=== PATIENT | male | born 1985 | race Caucasian/White ===

== ENCOUNTER 2017-02-21 18:49 | Emergency (ER) | payer SELFPAY ==
[2017-02-21] MEDS ORDERED: Metoclopramide IV* 5 MG/ML 2 ML VIAL IV ONE (19:58)
[2017-02-21] MEDS ORDERED: Pantoprazole IV* 40 MG IV ONE (19:58)
--- NOTE | 2017-02-21 20:18 | RAD ---
INDICATION: Vomiting COMPARISON: None TECHNIQUE: PA and lateral views of the chest were obtained. FINDINGS: The heart and mediastinum are normal in size and contour. The lungs are grossly clear. There is no evidence of large pleural effusion. Visualized bones are normal for the patient's age. There is no radiographic evidence of free air beneath the diaphragm IMPRESSION: No radiographic evidence of acute cardiopulmonary disease.
[2017-02-21] MEDS ORDERED: Sodium Polystyrene ORAL.SOL* 15 GM/60 ML BTL PO ONE (20:28)
[2017-02-21] MEDS: NS 0.9% 1000 ML* 2,000 ML IV ONE (20:47)
[2017-02-21 20:48] LABS: Hematocrit 44 % (42-52); Hemoglobin 14.8 g/dl (14.0-18.0); Mean Corpuscular HGB Conc 34 g/dl (31-36); Mean Corpuscular Hemoglobin 33 pg (27-31); Mean Corpuscular Volume 96 fL (80-94); Mean Platelet Volume 8 um3 (7.4-10.4); Red Blood Count 4.52 10^6/ul (4.0-5.4); Red Cell Distribution Width 14 % (10.5-15); White Blood Count 10.7 10^3/ul (3.5-10.8)
[2017-02-21 20:57] LABS: Urine Bilirubin Negative (Negative); Urine Glucose Negative (Negative); Urine Nitrite Negative (Negative)
[2017-02-21 21:01] LABS: Albumin 4.5 g/dL (3.2-5.2); BUN/Creatinine Ratio 14.9 (8-20); C Reactive Protein 6.13 mg/L (< 5.00); Calcium 9.5 mg/dL (8.6-10.3); EGFR African American 131.6 (>60); EGFR Non-African American 102.3 (>60); Globulin 2.6 g/dL (2-4); Magnesium 1.8 mg/dL (1.9-2.7); Potassium 3.9 mmol/L (3.5-5.0); Total Bilirubin 0.3 mg/dL (0.2-1.0); Total Protein 7.1 g/dL (6.4-8.9)
--- NOTE | 2017-02-21 21:03 | ED ---
Valerio Cruz Angela, scribed for Ezio Chen MD on 02/21/17 at 1952 . Abdominal Pain/Male - HPI Summary HPI Summary: This pt is a 31 y/o male presenting to [facility] c/o abd pain, nausea, vomiting and diarrhea x1.5 days. Pt describes his emesis as brown in color. Pt has chest and esophagus area discomfort secondary to vomiting. He states his throat is sore and has pain in throat when breathing. Pt describes diarrhea as brown and normal color. He states he has lost weight. Pt denies fever. Pt notes drinking alcohol (only 1 glass of wine) in the past few days but has been cutting back due to esophagitis. He is a current smoker. He states that he has fish oil allergies. Pt believes he might have food poisoning from eating [place] food 2 days ago. Pt denies having these symptoms before. PMHx: esophagitis (due to drinking alcohol). - History of Current Complaint Chief Complaint: EDAbdPain Stated Complaint: ABD PAIN, VOMITING Time Seen by Provider: 02/21/17 19:38 Hx Obtained From: Patient Onset/Duration: Lasting Days Timing: Lasting Days Pain Intensity: 4 Location: Diffuse Radiates: No Associated Signs And Symptoms: Positive: Nausea, Vomiting, Diarrhea, Other - weight loss. Negative: Fever - Allergies/Home Medications Allergies/Adverse Reactions: Allergies Allergy/AdvReac Type Severity Reaction Status Date / Time Fish Allergy Allergy Severe Anaphylatic Verified 02/21/17 18:55 Shock Fish Oil Allergy Severe Anaphylatic Verified 02/21/17 18:55 Shock Shellfish Allergy Allergy Severe Anaphylatic Verified 02/21/17 18:55 Shock PMH/Surg Hx/FS Hx/Imm Hx Endocrine/Hematology History: Denies: Hx Diabetes Cardiovascular History: Denies: Hx Hypertension EENT History: Reports: Other - esophagitis - Surgical History Surgery Procedure, Year, and Place: biopsy of esophagus Infectious Disease History: No Infectious Disease History: Denies: Traveled Outside the [place] in Last 30 Days - Family History Known Family History: Negative: Diabetes - Social History Occupation: Employed Full-time - cook Alcohol Use: Occasionally Hx Substance Use: No Substance Use Type: Reports: Marijuana Substance Use Comment - Amount & Last Used: week ago Hx Tobacco Use: Yes Smoking Status (MU): Current Every Day Smoker Review of Systems Negative: Fever, Chills Eyes: Negative Positive: Sore Throat - secondary to vomiting Cardiovascular: Negative Negative: Shortness Of Breath, Cough Positive: Abdominal Pain, Vomiting, Diarrhea, Nausea Neurological: Negative All Other Systems Reviewed And Are Negative: Yes Physical Exam Triage Information Reviewed: Yes Vital Signs On Initial Exam: Initial Vitals Temp Pulse Resp BP Pulse Ox 97.5 F 74 16 117/69 98 02/21/17 18:51 02/21/17 18:51 02/21/17 18:51 02/21/17 18:51 02/21/17 18:51 Vital Signs Reviewed: Yes Appearance: Positive: Well-Appearing, No Pain Distress Skin: Positive: Warm, Skin Color Reflects Adequate Perfusion Head/Face: Positive: Normal Head/Face Inspection Eyes: Positive: EOMI ENT: Positive: Normal ENT inspection, Pharyngeal erythema, TMs normal, Other - normal voice.. Negative: Trismus, Muffled/hoarse voice Neck: Positive: Nontender Respiratory/Lung Sounds: Positive: Clear to Auscultation, Breath Sounds Present Cardiovascular: Positive: RRR. Negative: Murmur Abdomen Description: Positive: Nontender Musculoskeletal: Positive: Strength/ROM Intact Neurological: Positive: Sensory/Motor Intact, Alert, Oriented to Person Place, Time, CN Intact II-III Psychiatric: Positive: Normal - Picher Coma Scale Best Eye Response: 4 - Spontaneous Best Motor Response: 6 - Obeys Commands Best Verbal Response: 5 - Oriented Coma Scale Total: 15 Diagnostics - Vital Signs Vital Signs Temp Pulse Resp BP Pulse Ox 02/21/17 19:32 72 105/66 99 02/21/17 18:51 97.5 F 74 16 117/69 98 - Laboratory Result Diagrams: 02/21/17 20:30 02/21/17 20:30 Lab Statement: Any lab studies that have been ordered have been reviewed, and results considered in the medical decision making process. - Radiology Chest XR Xray Interpretation: No Acute Changes - IMPRESSION: No radiographic evidence of acute cardiopulmonary disease. ED physician has reviewed this radiology report and agrees. Radiology Interpretation Completed By: Radiologist Abdominal Pain Fem Course/Dx - Course Assessment/Plan: Pt is a 31 y/o male, with PMHx of esophagitis, presents with abd pain, nausea, vomiting and diarrhea x1.5 days. Bloodwork and chest XR were obtained. - Diagnoses Provider Diagnoses: Abdominal pain Discharge - Discharge Plan Condition: Good Disposition: OTHER Referrals: No Primary Care Phys,NOPCP [Primary Care Provider] - The documentation as recorded by the Valerio rudd Angela accurately reflects the service I personally performed and the decisions made by me, Ezio Chen MD.
--- NOTE | 2017-02-21 21:44 | RAD ---
CLINICAL HISTORY: Epigastric pain COMPARISON: None TECHNIQUE: Noncontrast CT examination of the abdomen and pelvis from the lung bases through the initial tuberosities. FINDINGS: VISUALIZED LUNG BASES: The visualized lung bases are grossly clear. There is no pleural effusion. ABDOMEN AND PELVIS: Evaluation of the solid organs and vasculature is limited without intravenous contrast. The liver, spleen, pancreas and adrenal glands are grossly normal in appearance. The gallbladder is normal. Bilaterally there are multiple renal calculi measuring up to 3 mm on the left and 3 mm on the right. There is no definite hydronephrosis in either kidney. No renal calculi are identified in either ureter or in the urinary bladder. Evaluation of the gastrointestinal tract is limited in the absence of oral contrast. The small and large bowel are not distended. The appendix is probably visualized in the right lower quadrant with a small amount of gas in the lumen measuring 6 mm in diameter (axial image 51 and coronal image 34) There is no gross retroperitoneal or mesenteric lymphadenopathy. The pelvic viscera is normal in appearance. The abdominal aorta and iliac arteries are normal in course and diameter. Degenerative changes of the lower thoracic spine include loss of intervertebral disc height and mild endplate sclerosis at T11/T12.There are no sinister bone lesions. IMPRESSION: 1. Bilateral renal calculi without signs of urinary obstruction or acute inflammatory change. 2. No definite acute abnormality of the gastrointestinal tract, but evaluation is highly limited in the absence of oral and IV contrast.
[2017-02-21 22:54] VITALS: BP 116/76
--- NOTE | 2017-02-22 00:47 | ED ---
Diego Cruz Rebecca, scribed for Chandana Prakash on 02/21/17 at 2225 . Progress - Progress Note Progress Note: Pt was signed out from Dr. Chen, pending disposition, awaiting CT Abd/Pel. - Results/Orders Results/Orders: CT Abd/Pel, as read by radiologist reveals: 1. Bilateral renal calculi without signs of urinary obstruction or acute inflammatory change. 2. No definite acute abnormality of the gastrointestinal tract, but evaluation is highly limited in the absence of oral and IV contrast. ED physician reviewed radiology report and agrees. Re-Evaluation - Re-Evaluation First Eval Re-Evaluation Time: 22:24 Comment: Discussed CT results and plan to D/C with the pt. Course/Dx - Course Course Of Treatment: Pt was signed out by Dr. Chen, pending disposition, awaiting CT Ad/Pel. CT Abd/Pel reveals no acute findings. Pt's condition is stable and he will be D/C to home with Dx of abdominal pain with Rx for Protonix. He understands and agrees. - Diagnoses Provider Diagnoses: Pain, abdominal, nonspecific The documentation as recorded by the Diego rudd Rebecca accurately reflects the service I personally performed and the decisions made by , Chandana Prakash.
== END 2017-02-21 22:54 ==
LOC: ED 18:49 → MERGE 18:49 → ED 22:54
DX: R10.9 Unspecified abdominal pain (principal)
CPT/HCPCS: 36415; 71020; 74176; 80053; 81003; 83690; 83735; 85025; 86140; 96374; 99283; J2765

== ENCOUNTER 2018-01-09 11:35 | Emergency (ER) | payer SELFPAY ==
[2018-01-09 12:31] VITALS: BP 108/60
[2018-01-09] MEDS ORDERED: Tetan/Diph/Pertus SYR(Tdap)* 0.5 ML SYR(BOOSTRIX) use SYR IM ONE (12:47)
--- NOTE | 2018-01-09 12:48 | UC ---
Laceration HPI - HPI Summary HPI Summary: left third finger cut this morning while cutting onions at work---well approximated no bleeding, n/m/c intact - History Of Current Complaint Chief Complaint: UCLaceration Stated Complaint: FINGER LACERATION Time Seen by Provider: 01/09/18 12:42 Hx Obtained From: Patient Laceration Location: Finger - left third finger distally Mechanism Of Injury: Sharp Trauma Onset/Duration: Sudden Onset Pain Intensity: 4 Pain Scale Used: 0-10 Numeric Related History: Occupational Injury - Allergies/Home Medications Allergies/Adverse Reactions: Allergies Allergy/AdvReac Type Severity Reaction Status Date / Time fish oil Allergy Severe Anaphylatic Verified 01/09/18 12:33 Shock shellfish derived Allergy Intermediate Anaphylatic Verified 01/09/18 12:33 Shock Fish Containing Products Allergy Anaphylatic Verified 01/09/18 12:33 Shock Home Medications: Home Medications NK [No Home Medications Reported] 01/09/18 [History Confirmed 01/09/18] PMH/Surg Hx/FS Hx/Imm Hx Previously Healthy: Yes - Surgical History Surgical History: None Surgery Procedure, Year, and Place: biopsy of esophagus - Family History Known Family History: Negative: Diabetes - Social History Occupation: Employed Full-time Lives: With Family Alcohol Use: Occasionally Substance Use Type: Marijuana Substance Use Comment - Amount & Last Used: monthly Smoking Status (MU): Former Smoker Have You Smoked in the Last Year: No - Immunization History Most Recent Tetanus Shot: unsure Vaccination Up to Date: No Review of Systems Constitutional: Negative Skin: Other - 5 mm laceration tip of third left finger Eyes: Negative ENT: Negative Respiratory: Negative Cardiovascular: Negative Gastrointestinal: Negative Genitourinary: Negative Motor: Negative Neurovascular: Negative Musculoskeletal: Negative Neurological: Negative Psychological: Negative Is Patient Immunocompromised?: No All Other Systems Reviewed And Are Negative: Yes Physical Exam Triage Information Reviewed: Yes Vital Signs: Initial Vital Signs Temp 97.9 F 01/09/18 12:26 Pulse 73 01/09/18 12:26 Resp 18 01/09/18 12:26 BP 108/60 01/09/18 12:26 Pulse Ox 100 01/09/18 12:26 Eye Exam: Normal ENT Exam: Normal Dental Exam: Normal Neck exam: Normal Neck: Positive: 1 Respiratory Exam: Normal Cardiovascular Exam: Normal Abdominal Exam: Normal Musculoskeletal Exam: Normal Neurological Exam: Normal Psychological Exam: Normal Skin Exam: Normal Laceration Repair - Laceration Repair 1 Description: Linear Laceration Size After Repair: Length (cm) - 0.5 Modified For Repair: No Cleansing Completed Via Routine Prep: Yes Irrigation With Pressure Irrigation Device: Yes Closure Material: Skin Adhesive, SteriStrips Laceration Course/Dx - Course/Dx Course Of Treatment: up date bev, skin glue and steri repair for laceration - Differential Dx - Laceration/Wound Provider Diagnoses: laceration with glue repair left 3rd finger Discharge - Sign-Out/Discharge Documenting (check all that apply): Patient Departure All imaging exams completed and their final reports reviewed: No Studies - Discharge Plan Condition: Stable Disposition: HOME Patient Education Materials: Skin Adhesive Care (ED), Steristrips (ED) Forms: *Work Release Referrals: [facility] [Outside] - If Needed No Primary Care Phys,NOPCP [Primary Care Provider] - - Billing Disposition and Condition Condition: STABLE Disposition: Home - Attestation Statements Provider Attestation: I was available for consult. This patient was seen by the PAVAN. The patient was not presented to, seen by, or examined by me. -Fito
[2018-01-09] MEDS ORDERED: Benzoin Compound STICK TOPICAL ONE (13:13)
[2018-01-09] MEDS ORDERED: Benzoin Compound STICK ONE (13:14)
== END 2018-01-09 13:30 | disposition home or self-care (01) ==
LOC: UCEAST 11:35
DX: S61.213A Laceration without foreign body of left middle finger without damage to nail, initial encounter (principal); W26.0XXA Contact with knife, initial encounter; Y92.9 Unspecified place or not applicable
CPT/HCPCS: 12001; 90471; 90715; 99201; G0463

== ENCOUNTER 2018-08-29 23:26 | Emergency (ER) | payer OTHER ==
--- NOTE | 2018-08-30 01:55 | ED ---
Laceration/Wound HPI - HPI Summary HPI Summary: 32-year-old male presents with left little finger laceration. He states he was doing dishes and cut it. Denies any foreign body in wound. Tetanus up-to- date. No active bleeding. Has full range of motion. Has no medical conditions. - History of Current Complaint Stated Complaint: LEFT HAND LAC PER PT Time Seen by Provider: 08/30/18 01:34 Pain Intensity: 6 - Allergy/Home Medications Allergies/Adverse Reactions: Allergies Allergy/AdvReac Type Severity Reaction Status Date / Time fish oil Allergy Severe Anaphylatic Verified 08/29/18 23:35 Shock shellfish derived Allergy Intermediate Anaphylatic Verified 08/29/18 23:35 Shock Fish Containing Products Allergy Anaphylatic Verified 08/29/18 23:35 Shock PMH/Surg Hx/FS Hx/Imm Hx Endocrine/Hematology History: Denies: Hx Diabetes, Hx Thyroid Disease Cardiovascular History: Denies: Hx Hypertension Respiratory History: Denies: Hx Asthma, Hx Chronic Obstructive Pulmonary Disease (COPD) GI History: Denies: Hx Ulcer - Surgical History Surgery Procedure, Year, and Place: biopsy of esophagus Infectious Disease History: No Infectious Disease History: Denies: Hx Hepatitis, Hx Human Immunodeficiency Virus (HIV), Traveled Outside the [place] in Last 30 Days - Family History Known Family History: Negative: Diabetes - Social History Alcohol Use: None Hx Substance Use: No Substance Use Type: Reports: None Substance Use Comment - Amount & Last Used: monthly Hx Tobacco Use: Yes Smoking Status (MU): Light Every Day Tobacco Smoker Have You Smoked in the Last Year: No Review of Systems Negative: Fever Negative: Chest Pain Negative: Shortness Of Breath Positive: Other - left pinky finger laceration All Other Systems Reviewed And Are Negative: Yes Physical Exam Triage Information Reviewed: Yes Vital Signs On Initial Exam: Initial Vitals Temp Pulse Resp BP Pulse Ox 99.2 F 96 16 133/77 98 08/29/18 23:33 08/29/18 23:33 08/29/18 23:33 08/29/18 23:33 08/29/18 23:33 Vital Signs Reviewed: Yes Appearance: Positive: Well-Appearing Skin: Positive: Warm, Dry, Other - 1cm superficial of left pinky finger Head/Face: Positive: Normal Head/Face Inspection Eyes: Positive: Normal, Conjunctiva Clear ENT: Positive: Pharynx normal Respiratory/Lung Sounds: Positive: Clear to Auscultation, Breath Sounds Present Cardiovascular: Positive: Normal, RRR Musculoskeletal: Positive: Normal Neurological: Positive: Normal Psychiatric: Positive: Normal Procedures - Laceration/Wound Repair 1 Location: Other - left little finger Length, Depth and Shape: 1cm superficial Irrigated w/ Saline (ccs): 100 Closure: Skin Adhesive, SteriStrips Diagnostics - Vital Signs Vital Signs Temp Pulse Resp BP Pulse Ox 08/29/18 23:33 99.2 F 96 16 133/77 98 - Laboratory Lab Statement: Any lab studies that have been ordered have been reviewed, and results considered in the medical decision making process. Laceration Repair Course/Dx - Course Course Of Treatment: 32-year-old male presents with left little finger laceration. He states he was doing dishes and cut it. Denies any foreign body in wound. Tetanus up-to-date. No active bleeding. Has full range of motion. Has no medical conditions. On exam 1 cm superficial laceration on the proximal phalanx of left pinky finger. Clean area and place glue. Told to keep the area clean and dry. Patient understands agrees with plan. - Differential Dx Differental Diagnoses: Abrasion, Avulsion, Laceration - Clinical Impression Provider Diagnoses: Laceration of left little finger Discharge - Sign-Out/Discharge Documenting (check all that apply): Patient Departure Patient Received Moderate/Deep Sedation with Procedure: No - Discharge Plan Condition: Good Disposition: HOME Patient Education Materials: Skin Adhesive Care (ED) Forms: *Work Release Referrals: No Primary Care Phys,NOPCP [Primary Care Provider] - Additional Instructions: Take Tylenol or ibuprofen for pain as needed every 6 hours Keep dry for 24 hours Glue will fall off on own Avoid scrubbing area Return to ED if develop any signs of infection or any new or worsening symptoms - Billing Disposition and Condition Condition: GOOD Disposition: Home
[2018-08-30 02:16] VITALS: BP 126/79
== END 2018-08-30 02:15 | disposition home or self-care (01) ==
LOC: ED 23:26
DX: S61.217A Laceration without foreign body of left little finger without damage to nail, initial encounter (principal); W26.9XXA Contact with unspecified sharp object(s), initial encounter; Y93.G1 Activity, food preparation and clean up; Y92.010 Kitchen of single-family (private) house as the place of occurrence of the external cause; Y99.8 Other external cause status; F17.210 Nicotine dependence, cigarettes, uncomplicated
CPT/HCPCS: 12001; 99281

== ENCOUNTER 2019-03-10 12:37 | Emergency (ER) | payer SELFPAY ==
[2019-03-10 13:42] VITALS: BP 100/57
--- NOTE | 2019-03-10 13:53 | UC ---
Hand/Wrist HPI - HPI Summary HPI Summary: Patient is a 33-year-old male presenting with right wrist pain this morning. States he rolled over in bed and heard his wrist pop which woke him up. States pain radiates into hand which also has become swollen. He notes decreased carpenter maintenance strength. Notes some tingling. Denies numbness. Denies decreased range of motion. 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 - History Of Current Complaint Chief Complaint: UCUpperExtremity Stated Complaint: HAND / WRIST INJURY Hx Obtained From: Patient Onset/Duration: Sudden Onset Severity Currently: Mild Pain Intensity: 4 Pain Scale Used: 0-10 Numeric - Allergies/Home Medications Allergies/Adverse Reactions: Allergies Allergy/AdvReac Type Severity Reaction Status Date / Time fish oil Allergy Severe Anaphylatic Verified 03/10/19 13:37 Shock shellfish derived Allergy Intermediate Anaphylatic Verified 03/10/19 13:37 Shock Fish Containing Products Allergy Anaphylatic Verified 03/10/19 13:37 Shock PMH/Surg Hx/FS Hx/Imm Hx Previously Healthy: Yes - Surgical History Surgical History: Yes Surgery Procedure, Year, and Place: biopsy of esophagus - Family History Known Family History: Negative: Diabetes - Social History Alcohol Use: Rare Substance Use Type: None Substance Use Comment - Amount & Last Used: monthly Smoking Status (MU): Light Every Day Tobacco Smoker Amount Used/How Often: 3 cig a week Have You Smoked in the Last Year: No - Immunization History Most Recent Tetanus Shot: unsure Vaccination Up to Date: No Review of Systems All Other Systems Reviewed And Are Negative: Yes Constitutional: Positive: Negative Respiratory: Positive: Negative Cardiovascular: Positive: Negative Musculoskeletal: Positive: Arthralgia, Edema. Negative: Decreased ROM, Myalgia Neurological: Positive: Weakness, Paresthesia. Negative: Numbness Physical Exam Triage Information Reviewed: Yes Appearance: Well-Appearing, No Pain Distress, Well-Nourished Vital Signs: Initial Vital Signs Temp 97.7 F 03/10/19 13:37 Pulse 73 03/10/19 13:37 Resp 16 03/10/19 13:37 BP 100/57 03/10/19 13:37 Pulse Ox 99 03/10/19 13:37 Vital Signs Reviewed: Yes Eyes: Positive: Conjunctiva Clear ENT: Positive: Hearing grossly normal Neck: Positive: Supple Respiratory: Positive: No respiratory distress Cardiovascular: Positive: Pulses Normal - Strong radial pulses bilaterally, Brisk Capillary Refill Musculoskeletal Exam: Other Musculoskeletal: Positive: Strength Limited @ - Right hand carpenter maintenance, ROM Limited @ - Right wrist flexion, Edema @ - Mild edema of right hand and fingers compared to left Neurological Exam: Other - Sensation grossly intact Neurological: Positive: Alert Psychological: Positive: Age Appropriate Behavior Skin Exam: Normal, Other - No erythema or ecchymosis Diagnostics - Radiology R wrist xray Radiology Interpretation Completed By: Radiologist Summary of Radiographic Findings: IMPRESSION: NO ACUTE OSSEOUS INJURY. IF SYMPTOMS PERSIST, RECOMMEND REPEAT IMAGING. Hand/Wrist Course/Dx - Course Course Of Treatment: Chest negative x-rays with patient. Instructed him to continue with symptomatic treatment including use of cock-up splint. Instructed to follow-up with orthopedics if pain persists. Patient voiced understanding and agreed with the treatment plan. - Differential Dx/Diagnosis Provider Diagnosis: Right wrist pain Discharge ED - Sign-Out/Discharge Documenting (check all that apply): Patient Departure All imaging exams completed and their final reports reviewed: Yes - Discharge Plan Condition: Stable Disposition: HOME Patient Education Materials: Wrist Injury (ED) Forms: *Work Release Referrals: [facility] [Outside] - If Needed Millie Carranza MD [Medical Doctor] - If Needed Additional Instructions: As discussed, the xrays of the wrist did not show any fractures. Rest and use ice, elevation, and the wrist splint to help relieve pain. You may also use over the counter pain medications as directed for relief of pain. If pain does not resolve, follow up with your PCP or orthopedics as listed below. Return or go to the emergency room if pain worsens, the hand becomes cold and numb, or you are unable to move the wrist or hand. - Billing Disposition and Condition Condition: STABLE Disposition: Home
== END 2019-03-10 14:45 | disposition home or self-care (01) ==
LOC: UCEAST 12:37
DX: M25.531 Pain in right wrist (principal); F17.210 Nicotine dependence, cigarettes, uncomplicated; Z91.013 Allergy to seafood
CPT/HCPCS: 99212; G0463

== ENCOUNTER 2019-07-19 14:41 | Emergency (ER) | payer SELFPAY ==
[2019-07-19 15:24] VITALS: BP 115/62
[2019-07-19] MEDS ORDERED: Lidocaine 2.5%/Prilocain 2.5%* 5 GM TUBE TOPICAL ONE (15:53)
--- NOTE | 2019-07-19 16:18 | UC ---
Skin Complaint HPI - HPI Summary HPI Summary: 33 year old male with no PMH no medications, works as a chef french, presents with swollen, red, painful right third finger. States cut it at work or got a sliver ~ 1 week ago. Since then has been move painful. ABle to move finger, feels stiff. no sensation. no wrist pain, MCP pain. - History of Current Complaint Chief Complaint: UCUpperExtremity Time Seen by Provider: 07/19/19 15:45 Stated Complaint: R FINGER INFECTION Hx Obtained From: Patient Onset/Duration: Sudden Onset, Lasting Days - since , Still Present, Worse Since - daily Timing: Constant Onset Severity: Moderate Current Severity: Moderate Pain Intensity: 6 Pain Scale Used: 0-10 Numeric Location: Discrete - left middle finger DIP Character: Pain, Redness, Raised, Painful Aggravating Factor(s): Touch, Other - movement Associated Signs & Symptoms: Positive: Red Streaks, Joint Swelling. Negative: Nausea Related History: Trauma - Allergy/Home Medications Allergies/Adverse Reactions: Allergies Allergy/AdvReac Type Severity Reaction Status Date / Time fish oil Allergy Severe Anaphylatic Verified 07/19/19 15:24 Shock shellfish derived Allergy Intermediate Anaphylatic Verified 07/19/19 15:24 Shock Fish Containing Products Allergy Anaphylatic Verified 07/19/19 15:24 Shock Home Medications: Home Medications Sulfamethox/Trimethoprim DS* [Bactrim DS 800/160 TAB*] 1 tab PO BID #14 tab 07/08 [Rx] PMH/Surg Hx/FS Hx/Imm Hx Previously Healthy: Yes - Surgical History Surgical History: Yes Surgery Procedure, Year, and Place: biopsy of esophagus - Family History Known Family History: Positive: Non-Contributory Negative: Diabetes - Social History Alcohol Use: Rare Substance Use Type: None Substance Use Comment - Amount & Last Used: monthly Smoking Status (MU): Light Every Day Tobacco Smoker Amount Used/How Often: 3 cig a week Have You Smoked in the Last Year: No - Immunization History Most Recent Tetanus Shot: unsure Vaccination Up to Date: No Review of Systems All Other Systems Reviewed And Are Negative: Yes Constitutional: Positive: Negative. Negative: Fever, Chills, Fatigue Skin: Positive: Other ENT: Positive: Negative Musculoskeletal: Positive: Arthralgia, Edema, Myalgia Psychological: Positive: Negative Is Patient Immunocompromised?: No Physical Exam Triage Information Reviewed: Yes Appearance: Well-Appearing, No Pain Distress, Well-Nourished Vital Signs: Initial Vital Signs Temp 100.8 F 07/19/19 15:18 Pulse 76 07/19/19 15:18 Resp 16 07/19/19 15:18 BP 115/62 07/19/19 15:18 Pulse Ox 97 07/19/19 15:18 Vital Signs Reviewed: Yes Eyes: Positive: Conjunctiva Clear Musculoskeletal: Positive: Strength Intact - all DIP, PIP MCP on r hand, ROM Intact - all DIP, PIP MCP on r hand, Edema @ - DIP r 3rd finger Neurological: Positive: Alert, Muscle Tone Normal Psychological Exam: Normal Psychological: Positive: Normal Response To Family Skin: Positive: Other - moderate erythema around right middle DIP, decreased ROM due to swelling/ pain at DIP. Pustule seen on dorsal aspect of finger. + mild warmth. no drainage seen. Procedures - Incision and Drainage Right Finger Site: Uncomplicated I&D to abscess right 3rd dip, volar aspect, after anes with Anesthesia: Topical - EMLA Instrument(s): Scalpel - small puncture wound completed, no packing necessary Packing: Other - none Course/Dx - Course Course Of Treatment: I&D of right middle finger - Warm water soaks 3 times a day for next 2 days to help with drainage - Antibiotics as directed - Return if symptoms worse, increased pain, fever, chills, or decreased movement of finger - Elevate hand as much as possible to decrease swelling - Keep covered. - Diagnoses Provider Diagnosis: Abscess of finger of right hand, Cellulitis Discharge ED - Sign-Out/Discharge Documenting (check all that apply): Patient Departure All imaging exams completed and their final reports reviewed: No Studies - Discharge Plan Condition: Good Disposition: HOME Prescriptions: Sulfamethox/Trimethoprim DS* [Bactrim DS 800/160 TAB*] 1 tab PO BID #14 tab Patient Education Materials: Cellulitis (ED), Abscess Incision and Drainage (DC ) Forms: *Work Release Referrals: No Primary Care Phys,NOPCP [Primary Care Provider] - [facility] [Outside] Additional Instructions: - Warm water soaks 3 times a day for next 2 days to help with drainage - Antibiotics as directed - Return if symptoms worse, increased pain, fever, chills, or decreased movement of finger - Elevate hand as much as possible to decrease swelling - Keep covered. - Billing Disposition and Condition Condition: GOOD Disposition: Home
[2019-07-19] MEDS ORDERED: Sulfamethox/Trimethoprim DS 800/160* TAB PO ONE (16:41)
== END 2019-07-19 17:12 | disposition home or self-care (01) ==
LOC: UCEAST 14:41
DX: L02.511 Cutaneous abscess of right hand (principal); L03.011 Cellulitis of right finger; Z91.013 Allergy to seafood; Z72.0 Tobacco use
CPT/HCPCS: 10060; 87070; 87205; 99212; A9270-GY; G0463

== ENCOUNTER 2019-07-23 11:19 | Emergency (ER) | payer SELFPAY ==
[2019-07-23 12:10] VITALS: BP 127/83
--- NOTE | 2019-07-23 13:08 | UC ---
Skin Complaint HPI - HPI Summary HPI Summary: 33 yo male presents with right middle finger infection. He tells me that he was seen here on 07/18 for the same issue. He was placed on Bactrim and the area was I &D'd. Culture revealed sens to bactrim. Pt has been taking this as prescribed, but the area has collected white area of swelling and pain - thus his return for eval. Denies streaking or fever. - History of Current Complaint Chief Complaint: UCSkin Time Seen by Provider: 07/23/19 13:07 Stated Complaint: INFECTION ON FINGER Hx Obtained From: Patient Onset/Duration: Gradual Onset Onset Severity: Moderate Current Severity: Moderate Pain Intensity: 7 Pain Scale Used: 0-10 Numeric - Allergy/Home Medications Allergies/Adverse Reactions: Allergies Allergy/AdvReac Type Severity Reaction Status Date / Time fish oil Allergy Severe Anaphylatic Verified 07/23/19 12:02 Shock shellfish derived Allergy Intermediate Anaphylatic Verified 07/23/19 12:02 Shock Fish Containing Products Allergy Anaphylatic Verified 07/23/19 12:02 Shock Home Medications: Home Medications Sulfamethox/Trimethoprim DS* [Bactrim DS 800/160 TAB*] 1 tab PO BID #14 tab 07/08 [Rx Confirmed 07/23/19] Cephalexin CAP* [Keflex CAP*] 500 mg PO TID #15 cap 07/23/19 [Rx] PMH/Surg Hx/FS Hx/Imm Hx - Additional Past Medical History Additional PMH: None - Surgical History Surgical History: Yes Surgery Procedure, Year, and Place: biopsy of esophagus - Family History Known Family History: Positive: Non-Contributory Negative: Diabetes - Social History Lives: With Family Alcohol Use: Rare Substance Use Type: Marijuana Substance Use Comment - Amount & Last Used: monthly Smoking Status (MU): Current Some Day Smoker Amount Used/How Often: 3 cig a week Have You Smoked in the Last Year: No - Immunization History Most Recent Tetanus Shot: unsure Vaccination Up to Date: No Review of Systems All Other Systems Reviewed And Are Negative: No Constitutional: Positive: Negative Skin: Positive: Other - Right middle finger infection Respiratory: Positive: Negative Cardiovascular: Positive: Negative Neurovascular: Positive: Negative Musculoskeletal: Positive: Negative Neurological/Mental Status: Positive: Negative Psychological: Positive: Negative Physical Exam - Summary Physical Exam Summary: GENERAL: NAD. WDWN. No pain distress. SKIN: RIGHT MIDDLE FINGER: Volar aspect overlying DIP with 1.0cm abscess with white/yellow purulent fluctuant matter. Moderate TTP. No streaking along tendon or proximal finger. Moderate edema. CHEST: No accessory muscle use. Breathing comfortably and in no distress. CV: Pulses intact radial and ulnar. Cap refill <2seconds MSK: RIGHT MIDDLE FINGER: FROM at MCP and PIP. Decreased ROM at DIP due to degree of edema. NEURO: Alert. Sensations intact hand and all fingers. PSYCH: Age appropriate behavior. Triage Information Reviewed: Yes Vital Signs: Initial Vital Signs Temp 97.8 F 07/23/19 12:03 Pulse 80 07/23/19 12:03 Resp 18 07/23/19 12:03 BP 127/83 07/23/19 12:03 Pulse Ox 100 07/23/19 12:03 Vital Signs Reviewed: Yes Procedures - Incision and Drainage Right Finger Anesthesia: Topical - LET Instrument(s): Needle - 18G Packing: Other - None Course/Dx - Course Course Of Treatment: The procedure was explained to the pt and all questions were answered. A time out was performed, witnessed, and signed. LET solution was applied and let sit for ~15 minutes and good anesthetization was achieved. The area was cleansed with an alcohol pad. An 18G needle was used to josie the central most part of the abscess and copious yellow/white purulent matter was able to be expressed. The wound was bandaged with a bandaid. Pt tolerated procedure well. Will have him complete his course of the Bactrim and will add a bactericidal agent - keflex. Refer to Orthopedics if this area does not improve within the next 2-3 days, recommend recheck - Diagnoses Provider Diagnosis: Abscess of finger Discharge ED - Sign-Out/Discharge Documenting (check all that apply): Patient Departure All imaging exams completed and their final reports reviewed: No Studies - Discharge Plan Condition: Stable Disposition: HOME Prescriptions: Cephalexin CAP* [Keflex CAP*] 500 mg PO TID #15 cap Patient Education Materials: Abscess (ED) Referrals: No Primary Care Phys,NOPCP [Primary Care Provider] - Guero Plunkett MD [Medical Doctor] - 3 Days Additional Instructions: If you develop a fever, shortness of breath, chest pain, new or worsening symptoms - please call your PCP or go to the ED immediately. 1) change the band-aid daily 2) If your abscess to your finger returns or if you notice redness extending into your palm or if you develop a fever - please go to the ER 3) I recommend a recheck with Orthopedics in 3-5 days 4) Finish your BACTRIM and start taking the KEFLEX - Billing Disposition and Condition Condition: STABLE Disposition: Home
[2019-07-23] MEDS ORDERED: Lidocaine 2.5%/Prilocain 2.5%* 5 GM TUBE TOPICAL ONE (13:11)
[2019-07-23] MEDS ORDERED: Ibuprofen TAB* 400 MG PO ONE (13:55)
== END 2019-07-23 14:06 | disposition home or self-care (01) ==
LOC: UCEAST 11:19
DX: L02.511 Cutaneous abscess of right hand (principal); Z91.013 Allergy to seafood; Z72.0 Tobacco use
CPT/HCPCS: 10060; 99212; A9270-GY; G0463